=== PATIENT | female | born 1955 | race Hispanic/Latino ===

== ENCOUNTER 2018-07-06 20:35 | Emergency (ER) | payer BC, OTHER ==
[~2018-07-06] VITALS: Ht 154.9 cm; Wt 70.3 kg
[~2018-07-06 20:35] MED LIST: CLOBETASOL EMOL15 GM TOP; CYPROHEPTADINE H4 MG PO; DOCUSATE SODIU100 MG PO; KENALOG-4040 MG/1 ML TOP; LANSOPRAZOLE30 MG PO; PANTOPRAZOLE SO40 MG PO; VALTREX500 MG PO; ZOFRAN ODT4 MG PO
[2018-07-06] MEDS ORDERED: ONDANSETRON HCL INJ 2MG/ML 2ML 2 MG/ML VIAL IV STA (20:55)
[2018-07-06] MEDS ORDERED: MORPHINE SULFATE 5 MG/ML VIAL IV ONE (21:00)
[2018-07-06] MEDS ORDERED: SODIUM CHLORIDE 0.9% 1000ML 1,000 ML IV SCH (21:00)
--- NOTE | 2018-07-06 22:08 | Diagnostic Imaging Report ---
EXAM: CT Abdomen and Pelvis WITH contrast INDICATION: Left-sided discomfort. History of cholecystectomy, appendectomy, hysterectomy. History of diverticulitis. Left lower quadrant pain. Abdominal pain with vomiting. COMPARISON: None. TECHNIQUE: Abdomen and pelvis were scanned utilizing a multidetector helical scanner from the lung base to the pubic symphysis after administration of IV contrast. Coronal and sagittal reformations were obtained. Routine protocol was performed. Scan was performed when during portal venous phase. IV CONTRAST: 100 mL of Isovue 370 ORAL CONTRAST: Water COMPLICATIONS: None RADIATION DOSE: Total DLP: 632.2 mGy*cm Estimated effective dose: (DLP x 0.015 x size factor) mSv CTDIvol has been reviewed. It is below the limits set by the Radiation Protocol Committee (RPC). Dose modulation, iterative reconstruction, and/or weight based adjustment of the mA/kV was utilized to reduce the radiation dose to as low as reasonably achievable. FINDINGS: LINES and TUBES: None. LOWER THORAX: There is bibasilar atelectasis. HEPATOBILIARY: The liver is diffuse hypodense compared to the spleen, consistent with diffuse hepatic diffuse hepatic steatosis. No focal hepatic lesions. No biliary ductal dilation. GALLBLADDER: There are cholecystectomy clips. SPLEEN: No splenomegaly. PANCREAS: No focal masses or ductal dilatation. ADRENALS: No adrenal nodules KIDNEYS/URETERS: Kidneys enhance symmetrically. No hydronephrosis. Left extrarenal pelvis. 1.7 cm simple cyst in the interpolar region of the left kidney. No stones. GI TRACT: No abnormal distention, wall thickening, or evidence of bowel obstruction. There are diverticula within the colon without evidence of diverticulitis. There are post surgical changes of appendectomy. PELVIC ORGANS/BLADDER: The uterus is absent. Bilateral ovaries are nonvisualized. LYMPH NODES: No lymphadenopathy. VESSELS: Unremarkable. Right-sided pelvic phlebolith. PERITONEUM / RETROPERITONEUM: No free air or fluid. BONES: Focal moderate degenerative changes at L4-5. 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 (Series 2, image 60). SOFT TISSUES: Unremarkable. IMPRESSION: 1. No acute abnormalities identified abdomen or pelvis. 2. Diffuse hepatic steatosis. 3. Colonic diverticulosis without evidence of diverticulitis. Signed by: Dr. Teofilo Mtz M.D. on 07/06/2018 10:05 PM
[2018-07-06 22:37] VITALS: BP 134/76
== END 2018-07-06 22:38 | disposition home or self-care (01) ==
LOC: FSED 20:35
DX: R10.32 Left lower quadrant pain (principal); R11.0 Nausea
CPT/HCPCS: 74177; 80053; 81003; 85025; 99284; J2270; J2405

== ENCOUNTER 2019-07-07 10:25 | Inpatient (IN) | payer BC, OTHER ==
[~2019-07-07] VITALS: Ht 154.9 cm; Wt 63.6 kg
--- OUTSIDE RECORDS SUMMARY | 2019-07-07 10:29 | XMS REPORT ---
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 Allergies, Adverse Reactions, Alerts Allergy Name Allergy Type Status Severity Reaction(s) Onset Date Inactive Date Treating Clinician Comments No Known Contrast Allergies DA Active U 2006-08-23 00:00:00 No Known Food Allergies DA Active U 2006-08-23 00:00:00 No Known Other Allergies DA Active U 2006-08-23 00:00:00 PENICILLIN DA Active U 2006-08-23 00:00:00 Penicillins DA Active U 2001-02-17 00:00:00 Medications This patient has no known medications. Results Test Description Test Time Test Comments Text Results Atomic Results Result Comments CT ABD/PEL WITH CONTRAST-HOPD 2018-07-06 21:58:00 [place] [address] Patient Name: DANII STARR MR #: [id number] : 1955 Age/Sex: 62/F Req #: [id number] Adm Physician: Ordered by: JOLENE GARCIA MD Report #: [id number] Location: [facility] Room/Bed: Procedure: [id number] HOPD/CT ABD/PEL WITH CONTRAST-HOPD Exam Date: 07/06/18 Exam Time: 2119 REPORT STATUS: Signed EXAM: CT Abdomen and Pelvis WITH contrast INDICATION: Left-sided discomfort. History of cholecystectomy, appendectomy, hysterectomy. History of diverticulitis. Left lower quadrant pain. Abdominal pain with vomiting. COMPARISON: None. TECHNIQUE: Abdomen and pelvis were scanned utilizing a multidetector helical scanner from the lung base to the pubic symphysis after administration of IV contrast. Coronal and sagittal reformations were obtained. Routine protocol was performed. Scan was performed when during portal venous phase. IV CONTRAST: 100 mL of Isovue 370 ORAL CONTRAST: Water COMPLICATIONS: None RADIATION DOSE: Total DLP: 632.2 mGy*cm Estimated effective dose: (DLP x 0.015 x size factor) mSv CTDIvol has been reviewed. It is below the limits set by the Radiation Protocol Committee (RPC). Dose modulation, iterative reconstruction, and/or weight based adjustment of the mA/kV was utilized to reduce the radiation dose to as low as reasonably achievable. FINDINGS: LINES and TUBES: None. LOWER THORAX: There is bibasilar atelectasis. HEPATOBILIARY: The liver is diffuse hypodense compared to the spleen, consistent with diffuse hepatic diffuse hepatic steatosis. No focal hepatic lesions. No biliary ductal dilation. GALLBLADDER: There are cholecystectomy clips. SPLEEN: No splenomegaly. PANCREAS: No focal masses or ductal dilatation. ADRENALS: No adrenal nodules KIDNEYS/URETERS: Kidneys enhance symmetrically. No hydronephrosis. Left extrarenal pelvis. 1.7 cm simple cyst in the interpolar region of the left kidney. No stones. GI TRACT: No abnormal distention, wall thickening, or evidence of bowel obstruction. There are diverticula within the colon without evidence of diverticulitis. There are post surgical changes of appendectomy. PELVIC ORGANS/BLADDER: The uterus is absent. Bilateral ovaries are nonvisualized. LYMPH NODES: No lymphadenopathy. VESSELS: Unremarkable. Right-sided pelvic phlebolith. PERITONEUM / RETROPERITONEUM: No free air or fluid. BONES: Focal moderate degenerative changes at L4-5. 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 (Series 2, image 60). SOFT TISSUES: Unremarkable. IMPRESSION: 1. No acute abnormalities identified abdomen or pelvis. 2. Diffuse hepatic steatosis. 3. Colonic diverticulosis without evidence of diverticulitis. Signed by: Dr. Reza Mtz M.D. on 07/06/2018 10:05 PM Dictated By: REZA MTZ MD 04 Transcribed By: OLGA LIDIA on 07/06/182204 COPY TO: JOLENE GARCIA MD
[2019-07-07 10:56] LABS: BASOPHILS % 0.2 % (0.0-1.0); HEMATOCRIT 41.5 % (34.2-44.1); LYMPHOCYTES # (AUTO) 1.3 (1.0-3.2); LYMPHOCYTES % 32.9 % (18.0-39.1); MEAN CORPUSCULAR HEMOGLOBIN 30.1 pg (28-32); MEAN CORPUSCULAR HGB CONC 33.7 g/dL (31-35); MEAN CORPUSCULAR VOLUME 89.2 fL (81-99); MONOCYTES # (AUTO) 0.6 (0.2-0.8); MONOCYTES % 14.5 % (4.4-11.3); NEUTROPHILS # (AUTO) 2.1 (2.1-6.9); NEUTROPHILS % 51.9 % (38.7-80.0); PLATELET COUNT 214 x10e3/uL (140-360); RED BLOOD COUNT 4.65 x10e6/uL (3.6-5.1); RED CELL DISTRIBUTION WIDTH 13.2 % (11.7-14.4)
[2019-07-07 11:07] LABS: STREPTOCOCCUS GRP A ANTIGEN NEGATIVE (NEGATIVE)
[2019-07-07 11:11] LABS: ALANINE AMINOTRANSFERASE 58 IU/L (0-55); ALBUMIN 4.2 g/dL (3.5-5.0); ALBUMIN/GLOBULIN RATIO 1.4 (0.8-2.0); ALKALINE PHOSPHATASE 82 IU/L (40-150); ANION GAP 12.8 mmol/L (8-16); BLOOD UREA NITROGEN 6 mg/dL (7-26); BUN/CREATININE RATIO 9 (6-25); CALCIUM 8.9 mg/dL (8.4-10.2); CARBON DIOXIDE 28 mmol/L (22-29); CHLORIDE 97 mmol/L (98-107); CREATINE KINASE 245 IU/L (29-168); CREATININE, SERUM 0.68 mg/dL (0.57-1.11); EST GLOMERULAR FILTRATION RATE > 60 ML/MIN (60-); GLUCOSE 96 mg/dL (74-118); SODIUM 135 mmol/L (136-145)
[2019-07-07 11:12] LABS: POTASSIUM 2.8 mmol/L (3.5-5.1)
[2019-07-07] MEDS ORDERED: POTASSIUM CHLORIDE 20 MEQ TAB CR PO STA (11:13)
[2019-07-07 11:17] LABS: INFLUENZAE A&B ANTIGEN (RAPID) NEGATIVE (NEGATIVE)
[2019-07-07] MEDS ORDERED: SODIUM CHLORIDE 0.9% 1000ML 1,000 ML IV STA (11:18)
--- NOTE | 2019-07-07 11:33 | NUR ---
CANCEL UA PER MD
--- NOTE | 2019-07-07 12:55 | Diagnostic Imaging Report ---
EXAM: CHEST SINGLE (PORTABLE) DATE: 07/07/2019 10:48 AM INDICATION: Shortness of breath COMPARISON: None FINDINGS: The trachea is midline. There are increased patchy opacities present within the left lower lung zone. The right lung is clear. There is no evidence for pneumothorax or significant pleural effusion. The cardiomediastinal silhouette and pulmonary vasculature are within normal limits. No acute osseous abnormality is identified. IMPRESSION: Increased patchy opacities noted within the left lower lung zone which can be seen in the setting of a developing airspace process such as pneumonia. Signed by: Dr. Dakota Martinez MD on 07/07/2019 12:52 PM
[2019-07-07 13:05] LABS: CHOL/HDL RATIO 3.3 (3.0-3.6)
[2019-07-07] MEDS ORDERED: SODIUM CHLORIDE FLUSH 10 ML SYR INJ PRN (14:15)
--- NOTE | 2019-07-07 14:32 | NUR ---
Patient denies the use of any home medications
--- NOTE | 2019-07-07 14:32 | NUR ---
Patient's son- Drake [phone] Patient's mother- Mrs. Mitchell [phone]
[2019-07-07] MEDS: AZITHROMYCIN 500MG/NS 250 ML 250 ML IV SCH (14:33)
[2019-07-07] MEDS: LACTATED RINGER'S 1,000 ML IV SCH (15:29)
[2019-07-07] MEDS: ENOXAPARIN SOD INJ 40 MG/0.4 ML SYR SC SCH (17:41)
--- NOTE | 2019-07-07 18:02 | Consultation ---
DATE OF CONSULTATION: Pulmonary Critical Care Consultation CHIEF COMPLAINT: Cough and fevers with exposure to COVID-19. HISTORY OF PRESENT ILLNESS: The patient is a 63-year-old woman. She has no pre-existing cardiopulmonary history. Her contracted COVID-19, and was hospitalized 8 days ago. He is now in the ICU. Two to three days ago the patient developed a dry cough. This morning, she developed some fevers. She called her physician who recommended that she come to the emergency department. The patient also had some diarrhea that resolved with Imodium, which she attributes to prior diverticulitis. She also complains of a dry mouth and feeling dehydrated. She also reports some fatigue and weakness. PAST SURGICAL HISTORY: 1. Status post hysterectomy. 2. Status post appendectomy. PAST MEDICAL HISTORY: 1. No prior cardiac disease. 2. No history of diabetes. 3. No history of prior asthma or COPD. SOCIAL HISTORY: The patient has never smoked. She is not a drinker. Her had COVID-19 and required admission to the hospital 8 days ago. Her brother lives in the same house, but she has been maintaining a distance from him. ALLERGIES: THE PATIENT IS ALLERGIC TO PENICILLIN AND CIPROFLOXACIN. REVIEW OF SYSTEMS: The patient is afebrile now, but did have a fever earlier. She has no headache. She complains of a dry mouth. She does have some nonproductive cough. She has no chest pain. She is unsure of dyspnea. She has no abdominal pain. She did have some diarrhea. She has no leg swelling. There are no skin rashes. PHYSICAL EXAMINATION: VITAL SIGNS: The patient is afebrile. The blood pressure is 117/61, saturation is 97%, and the pulse is 89. HEENT: No facial swelling or erythema. CARDIAC: Regular rate and rhythm with normal S1, S2. LUNGS: Auscultation of lungs reveals rhonchorous breath sounds bilaterally. There is no wheezing. ABDOMEN: Soft, nontender. There is no rebound or guarding. EXTREMITIES: No leg edema or calf tenderness. There is no cyanosis or clubbing. SKIN: No rashes. NEUROLOGICAL: No focal abnormalities. LABORATORY DATA: White blood cell count is 4 and hemoglobin is 14. The platelet count is 214. The potassium is 2.8 and BUN to creatinine ratio is 6-0.68. RADIOGRAPHIC DATA: Chest x-ray shows patchy opacities in the left lower lung. IMPRESSION: 1. Atypical pneumonia. 2. Probable COVID-19 infection. 3. Hypokalemia. 4. Diverticulosis. 5. Dehydration. PLAN: 1. The patient will receive IV fluids along with intravenous Zithromax. 2. Await serology testing. 3. Replace potassium. 4. Continue to monitor oxygen saturation and respiratory symptoms. 5. The patient remains off oxygen and does not have worsening symptoms, she could be treated as an outpatient. Donald Cleveland MD [facility]/MODL /[id number]
[2019-07-07 18:20] VITALS: BP 135/59
[2019-07-07 18:20] LABS: CREATINE KINASE 161 IU/L (29-168)
--- NOTE | 2019-07-07 18:23 | NUR ---
patient arrived to room 177, on room air with mask in place. oriented to room and policies. call light within reach & all belongings near. patient aware to call for assistance if needed.
--- NOTE | 2019-07-07 18:57 | History and Physical ---
PRIMARY CARE DOCTOR: Moe Oakley CHIEF COMPLAINT: Shortness of breath. HISTORY OF PRESENT ILLNESS: This is a 63-year-old woman, whose is currently hospitalized in the ICU with COVID-19. The patient presented with cough for about 5 days now. However, initially, the cough is dry, now it is turning into productive including green sputum. The patient denies fever per se, but this morning, she woke up completely soak. The patient had diarrhea one time a few days ago, but denies any nausea, vomiting. No myalgia. The patient does complain of severe dry mouth. Yesterday, the patient started to feel short of breath and today, it got more, especially with exertion. That is why, the patient presented to our emergency room. The patient denies chest pain. PAST MEDICAL AND SURGICAL HISTORY: 1. GERD. 2. Cholecystectomy. 3. Appendectomy. 4. Hysterectomy. 5. Hernia repair. MEDICATIONS: Please see medication reconciliation form. ALLERGIES: TO PENICILLIN AND CIPROFLOXACIN. SOCIAL HISTORY: Does not smoke. FAMILY HISTORY: Cancer. REVIEW OF SYSTEMS: A 10-point review of system obtained and nothing else is significant other than what is stated in HPI. PHYSICAL EXAMINATION: VITAL SIGNS: Temperature 99.1, pulse 89, respiratory rate 18, blood pressure 117/61, saturating 97% on room air. GENERAL: No acute distress. SKIN: No rash. HEENT: Anicteric. Oropharynx is clear. LUNGS: Coarse crackles. HEART: Regular rate and rhythm. Normal S1, S2. ABDOMEN: Soft, nondistended. MUSCULOSKELETAL: Painless range of motion. NEUROLOGIC: Alert and oriented x3. Cranial nerves 2 through 12 intact. PSYCHIATRIC: No hallucination. LABORATORY DATA: Laboratory tom, white count 4, hemoglobin 14, platelet count 214. Potassium 2.8, creatinine 0.68. Ferritin is elevated at 260. Lactic acid is negative. Creatinine 0.68. AST 43, ALT 58, CPK is 245. Beta natriuretic peptide is negative. Chest x-ray shows left lower increased patchy opacities. ASSESSMENT AND PLAN: 1. Presumed COVID-19 with pneumonia. The patient was started on azithromycin. Pulmonary and Infectious Disease have been consulted. 2. Hypokalemia. The patient received a dose in the emergency room for replacement. We will repeat in the morning to assess response. 3. Slightly elevated CPK. We will continue to hydrate her. 4. Mild elevation of AST and ALT. We will monitor. 5. Gastrointestinal/deep venous thrombosis prophylaxis, on Lovenox. MD STEFANO Crisostomo/SERINA /[id number] cc: Moe Oakley
--- NOTE | 2019-07-07 19:29 | NUR ---
patient's son, edgar, updated per patient request. he can be reached at [phone].
[2019-07-07 20:15] VITALS: BP 124/58
[2019-07-07 21:12] VITALS: BP 124/58
[2019-07-08] VITALS (8 sets, daily range): BP systolic 121–142; BP diastolic 56–72
--- NOTE | 2019-07-08 00:13 | NUR ---
Patients vitals taken and patients temp 102.6. Called Dr. Grimaldo waiting for a call back.
[2019-07-08 00:28] LABS: CREATINE KINASE 140 IU/L (29-168)
--- NOTE | 2019-07-08 00:37 | NUR ---
Called Dr. Grimaldo again second time.
[2019-07-08] MEDS: LACTATED RINGER'S 1,000 ML IV SCH ×2 (01:19→11:00)
--- NOTE | 2019-07-08 01:32 | NUR ---
Called Dr. Stark awaiting for his call back.
[2019-07-08 05:06] LABS: BASOPHILS % 0.3 % (0.0-1.0); HEMATOCRIT 37.1 % (34.2-44.1); HEMOGLOBIN 12.4 g/dL (12.0-16.0); LYMPHOCYTES # (AUTO) 1.1 (1.0-3.2); LYMPHOCYTES % 28.9 % (18.0-39.1); MEAN CORPUSCULAR HGB CONC 33.4 g/dL (31-35); MEAN CORPUSCULAR VOLUME 89.6 fL (81-99); MONOCYTES # (AUTO) 0.5 (0.2-0.8); MONOCYTES % 12.2 % (4.4-11.3); NEUTROPHILS # (AUTO) 2.3 (2.1-6.9); NEUTROPHILS % 58.3 % (38.7-80.0); PLATELET COUNT 194 x10e3/uL (140-360); RED BLOOD COUNT 4.14 x10e6/uL (3.6-5.1); RED CELL DISTRIBUTION WIDTH 13.2 % (11.7-14.4)
[2019-07-08 05:23] LABS: ALANINE AMINOTRANSFERASE 38 IU/L (0-55); ALBUMIN 3.4 g/dL (3.5-5.0); ALBUMIN/GLOBULIN RATIO 1.3 (0.8-2.0); ALKALINE PHOSPHATASE 66 IU/L (40-150); ANION GAP 12.9 mmol/L (8-16); BLOOD UREA NITROGEN < 5 mg/dL (7-26); CALCIUM 7.8 mg/dL (8.4-10.2); CARBON DIOXIDE 23 mmol/L (22-29); CHLORIDE 99 mmol/L (98-107); CREATININE, SERUM 0.57 mg/dL (0.57-1.11); EST GLOMERULAR FILTRATION RATE > 60 ML/MIN (60-); GLUCOSE 83 mg/dL (74-118); SODIUM 132 mmol/L (136-145)
[2019-07-08 05:31] LABS: ALBUMIN 3.5 g/dL (3.5-5.0); BILIRUBIN,DIRECT 0.3 mg/dL (0.0-0.5); CREATINE KINASE 116 IU/L (29-168)
[2019-07-08 05:37] LABS: BUN/CREATININE RATIO 9 (6-25)
[2019-07-08 05:41] LABS: POTASSIUM 2.9 mmol/L (3.5-5.1)
--- NOTE | 2019-07-08 05:44 | NUR ---
Critical K, called Dr. Grimaldo for orders, awaiting a return call.
--- NOTE | 2019-07-08 06:22 | NUR ---
Received potassium order for critical lab and tylenol order for temperature per Dr. Grimaldo.
[2019-07-08] MEDS ORDERED: POTASSIUM CHLORIDE 20 MEQ TAB CR PO ONE ×2 (06:30→08:15)
[2019-07-08] MEDS: PANTOPRAZOLE SOD 40 MG TABEC PO SCH (08:28)
--- NOTE | 2019-07-08 08:46 | NUR ---
ASSESSMENT: Spiritual Distress Blueprint Duplicator referred by RN. Telephonic visit. Pt worried about her illness and her 's health. Pt states her is in ICU (Dank Haines, Rm 196). Pt requested prayer. Pt identifies as "Confucianist and non-congregational." Intervention: Provided calming pastoral support and prayer. Provided information on how to reach historiography teacher, if needed. Outcome: Pt stated, "God bless you, historiography teacher." Will follow as able. TAMIA REDMOND Blueprint Duplicator Spiritual Care Department O: [phone]
--- NOTE | 2019-07-08 10:55 | Diagnostic Imaging Report ---
EXAM: CHEST SINGLE (PORTABLE) DATE: 07/08/2019 7:00 AM INDICATION: Shortness of breath COMPARISON: 07/07/2019 FINDINGS: Again identified are patchy airspace opacities the guiding over the left lower lung zone. There is no evidence for lobar consolidation, pneumothorax, or significant pleural effusion. The cardiomediastinal silhouette is stable in appearance. No acute osseous abnormality is identified. IMPRESSION: Grossly stable appearing patchy airspace opacities identified within the left lower lung zone which can be seen in the setting of an infectious/inflammatory process. Signed by: Dr. Dakota Martinez MD on 07/08/2019 10:52 AM
--- NOTE | 2019-07-08 13:01 | NUR ---
[id number] late entery for 07/07/2019
--- NOTE | 2019-07-08 13:44 | Consultation ---
DATE OF CONSULTATION: 07/07/2019 HISTORY OF PRESENT ILLNESS: The patient is a very pleasant 63-year-old Bulgarian female, who comes in the emergency room complaining of shortness of breath and cough. Her was diagnosed recently with COVID-19. He is currently in our hospital in ICU. The patient was in our hospital. He has been sick for more than 2 weeks. She said she has been sick for a few days with cough and fever. The patient's, however, evaluation in the emergency room showed she has no fever. Also, the patient did not seem to be hypoxemic, but the patient is going to be admitted for observation and evaluation. The patient does have history of hysterectomy and appendectomy. PAST MEDICAL HISTORY: She denies drug abuse. She denies any medical history. SOCIAL HISTORY: Negative. No smoking, drug abuse, or alcohol abuse. FAMILY HISTORY: Otherwise noncontributory. REVIEW OF SYSTEMS: She claims that she is short of breath and having cough and fever as mentioned above, otherwise all negative. LABORATORY DATA: On admission, white count 3.94, hemoglobin 12, and platelets 194. She has elevated monocyte. Her influenza A and B were negative. Sodium 132, potassium 3.9. PHYSICAL EXAMINATION: GENERAL: She is currently alert and oriented, does not seem to be in acute distress. VITAL SIGNS: Stable. She does have fever of 103. HEENT: She is not icteric. NECK: Supple. CHEST: Few crackles. COR: S1 and S2. No S3, S4, or murmur. ABDOMEN: Soft. IMAGING STUDIES: She had a chest x-ray, which showed stable patchy airspace opacities. IMPRESSION: Pneumonia, present on admission versus suspicious for COVID-19, put on droplet isolation. We will put her on Rocephin and azithromycin. Obtain blood cultures. Recheck CBC. Recheck Chem panel. We will follow. MD NICOLE Hernandez/SERINA /[id number]
[2019-07-08] MEDS ORDERED: MAGNESIUM SULFATE 2GM/50ML 50 ML IV ONE (14:30)
--- NOTE | 2019-07-08 14:35 | Progress Note ---
DATE: SUBJECTIVE: Ms. Haines is lying in bed comfortably. She is complaining of fever and some cough and shortness of breath. The patient is currently on azithromycin. REVIEW OF SYSTEMS: Positive for fever and shortness of breath. PHYSICAL EXAMINATION: GENERAL: Currently alert and oriented, does not seem to be in acute distress. VITAL SIGNS: Stable, currently febrile. HEENT: She is not icteric. NECK: Supple. CHEST: Few crackles. COR: S1 and S2. No S3, S4, or murmur. ABDOMEN: Soft. Bowel sounds present. EXTREMITIES: No edema. IMPRESSION: Fever and pneumonia. Continue Rocephin. Continue azithromycin. Obtain blood cultures. Recheck CBC. Recheck Chem panel. We will maintain droplet isolation. We will follow. MD NICOLE Hernandez/SERINA /[id number]
--- NOTE | 2019-07-08 14:35 | Progress Note ---
DATE: SUBJECTIVE: The patient still has some fever, but her saturations are normal on room air. She has minimal dyspnea. PHYSICAL EXAMINATION: VITAL SIGNS: The patient is febrile at 100.8. The blood pressure is 121/56. Saturation 95% on room air. Pulse is 95. HEENT: Shows no facial swelling or erythema. CARDIAC: Reveals regular rate and rhythm with normal S1 and S2. LUNGS: Auscultation of lungs reveals clear breath sounds bilaterally. There is no wheezing. ABDOMEN: Soft, nontender. There is no rebound or guarding. EXTREMITIES: Show no leg edema or calf tenderness. There is no cyanosis or clubbing. SKIN: Shows no rashes. PSYCHIATRIC: Shows no focal abnormalities. IMPRESSION: 1. Viral pneumonia, possibly secondary to COVID-19. 2. Hypokalemia. 3. Diverticulosis. PLAN: 1. Continue Zithromax. 2. Await results of antigen testing for COVID-19. 3. Continue to monitor oxygen saturation and temperature. Donald Cleveland MD [facility]/MODL /[id number]
[2019-07-08] MEDS: CEFTRIAXONE SOD 2 GM/NS 100 ML 100 ML IV SCH (15:20)
[2019-07-08] MEDS: AZITHROMYCIN 500MG/NS 250 ML 250 ML IV SCH (16:22)
[2019-07-08] MEDS: ENOXAPARIN SOD INJ 40 MG/0.4 ML SYR SC SCH (17:23)
--- NOTE | 2019-07-08 17:34 | NUR ---
patient requested to be placed on nasal cannula due to left sided pain- 2L. dr. su aware.
[2019-07-08] MEDS: ACETAMINOPHEN 325 MG TAB PO PRN (21:00)
--- NOTE | 2019-07-08 21:00 | NUR ---
Pt received lying in bed, HOB 60 degrees. Pt denies pain at this time. c/o mild SOB upon exertion. Bed low and locked. Informed to call on bedside phone for assistance.
--- NOTE | 2019-07-08 21:05 | NUR ---
Temp 100.5, admin prn Tylenol. Pt mild chills, no diaphoresis noted, denies pain at this time.
[2019-07-09] VITALS (7 sets, daily range): BP systolic 102–142; BP diastolic 59–80
[2019-07-09] MEDS: LACTATED RINGER'S 1,000 ML IV SCH ×2 (01:00→12:27)
[2019-07-09 06:02] LABS: ANION GAP 10.9 mmol/L (8-16); BLOOD UREA NITROGEN < 5 mg/dL (7-26); CALCIUM 8.3 mg/dL (8.4-10.2); CARBON DIOXIDE 27 mmol/L (22-29); CHLORIDE 102 mmol/L (98-107); CREATININE, SERUM 0.54 mg/dL (0.57-1.11); EST GLOMERULAR FILTRATION RATE > 60 ML/MIN (60-); GLUCOSE 97 mg/dL (74-118); MAGNESIUM 2.2 MG/DL (1.3-2.1); POTASSIUM 3.9 mmol/L (3.5-5.1); SODIUM 136 mmol/L (136-145)
[2019-07-09 06:22] LABS: BUN/CREATININE RATIO 9 (6-25)
--- NOTE | 2019-07-09 06:43 | NUR ---
Spoke with Dr. Grimaldo, Pt c/o abdomen pain, no BM x5 days, ordered Lactulose 45ml x1 dose now.
[2019-07-09] MEDS ORDERED: LACTULOSE SYRUP 20 GM/30 ML UDC PO ONE ×2 (06:45→09:00)
[2019-07-09] MEDS: ACETAMINOPHEN 325 MG TAB PO PRN ×2 (08:22→21:00)
[2019-07-09] MEDS ORDERED: HYDROMORPHONE 1MG/1ML INJ IV ONE (09:00)
--- NOTE | 2019-07-09 09:28 | Progress Note ---
DATE: SUBJECTIVE: The patient reports severe abdominal pain. She had no bowel movement for 5 days. She reports a history of diverticulitis. She had some diarrhea prior to coming to the hospital that resolved with Imodium. PHYSICAL EXAMINATION: VITAL SIGNS: Blood pressure is 140/71, temperature is 100.1, pulse is 103. Saturation is 100% on 2 L. HEENT: No facial swelling or erythema. CARDIAC: Regular rate and rhythm with normal S1, S2. LUNGS: Auscultation of lungs reveals rhonchorous breath sounds bilaterally. There is no wheezing. ABDOMEN: Tender in the left lower quadrant. There is no rebound. EXTREMITIES: She has no leg edema. LABORATORY DATA: White blood cell count is pending. The BUN to creatinine ratio is 5 to 0.54. The potassium is 3.9. IMPRESSION: 1. Diverticulitis with abdominal pain and tenderness. 2. Viral pneumonia, possibly secondary to COVID-19. 3. Hypokalemia. PLAN: 1. Dilaudid 0.25 mg IV x1 and pain control as needed. 2. Continue IV fluids. 3. Add Flagyl to current antibiotics. 4. Discuss potential need for CT scan of the abdomen and pelvis with Dr. Grimaldo and Dr. Stark. MD BOB Samson/SERINA /[id number]
[2019-07-09] MEDS: PANTOPRAZOLE SOD 40 MG TABEC PO SCH (09:38)
--- NOTE | 2019-07-09 11:56 | NUR ---
PROGRESS [id number]
[2019-07-09] MEDS: CEFTRIAXONE SOD 2 GM/NS 100 ML 100 ML IV SCH (14:19)
[2019-07-09] MEDS ORDERED: MAGNESIUM HYDROXIDE 30 ML UDC PO PRN (14:30)
[2019-07-09 14:33] LABS: AMYLASE 69 U/L (25-125); LIPASE 50 U/L (8-78)
[2019-07-09 14:45] LABS: BASOPHILS % 0.2 % (0.0-1.0); HEMATOCRIT 37.5 % (34.2-44.1); HEMOGLOBIN 12.5 g/dL (12.0-16.0); LYMPHOCYTES # (AUTO) 0.8 (1.0-3.2); LYMPHOCYTES % 14.5 % (18.0-39.1); MEAN CORPUSCULAR HEMOGLOBIN 29.7 pg (28-32); MEAN CORPUSCULAR HGB CONC 33.3 g/dL (31-35); MEAN CORPUSCULAR VOLUME 89.1 fL (81-99); MONOCYTES # (AUTO) 0.5 (0.2-0.8); MONOCYTES % 8.7 % (4.4-11.3); NEUTROPHILS # (AUTO) 4.1 (2.1-6.9); NEUTROPHILS % 76.2 % (38.7-80.0); PLATELET COUNT 219 x10e3/uL (140-360); RED BLOOD COUNT 4.21 x10e6/uL (3.6-5.1); RED CELL DISTRIBUTION WIDTH 13.4 % (11.7-14.4)
--- NOTE | 2019-07-09 14:55 | Progress Note ---
DATE: SUBJECTIVE: Ms. Haines's COVID-19 status came back positive, her was positive. She says she is feeling about the same. She have some shortness of breath. Her temperatures seem to be trending down. She also have some diffuse abdominal discomfort, but she is telling me she did not have a bowel movement. LABORATORY DATA: Still pending from today. Her sodium was 136, potassium 3.9. PHYSICAL EXAMINATION: GENERAL: She is currently alert, oriented. She is lying fever. HEENT: She is not icteric. NECK: Supple. CHEST: Clear. A few crackles bilateral. HEART: S1, S2. No S3, S4 or murmur. ABDOMEN: Soft. IMPRESSION: 1. COVID-19 pneumonia. 2. Concern about superimposed bacterial pneumonitis. She continues . 3. Abdominal pain. She is telling me that she has constipation. We will give her laxative of choice. She said she had no bowel movement the last five days. Her abdomen was soft upon examination. I am going to reassess her tomorrow morning. If she still having issue, we may have to proceed with a CAT scan. In the meantime, continue with droplet isolation. MD NICOLE Hernandez/SERINA /[id number]
[2019-07-09] MEDS: AZITHROMYCIN 500MG/NS 250 ML 250 ML IV SCH (15:00)
[2019-07-09] MEDS: METRONIDAZOLE 500MG/NS 100ML 100 ML IV SCH ×2 (15:02→22:00)
[2019-07-09] MEDS: ENOXAPARIN SOD INJ 40 MG/0.4 ML SYR SC SCH (17:22)
--- NOTE | 2019-07-09 18:35 | NUR ---
Patient up in bed, denies any pain, no distress noted, patient had 3 BMs, abd pain is coming down as per patient, keep monitoring
--- NOTE | 2019-07-09 19:30 | NUR ---
Received report from morning nurse. Pt COVID19 positive interpretation. Pt lying in bed, HOB 45 degrees. Pt asked for water pitcher. denies pain at this time. Informed to use phone to call if anything needed. Bed low and locked. Will continue to monitor.
[2019-07-10] VITALS (7 sets, daily range): BP systolic 109–140; BP diastolic 53–65
[2019-07-10] MEDS: LACTATED RINGER'S 1,000 ML IV SCH (05:00)
[2019-07-10] MEDS: METRONIDAZOLE 500MG/NS 100ML 100 ML IV SCH ×3 (05:28→21:01)
[2019-07-10 05:55] LABS: HEMATOCRIT 38.1 % (34.2-44.1); HEMOGLOBIN 12.7 g/dL (12.0-16.0); LYMPHOCYTES # (AUTO) 0.9 (1.0-3.2); LYMPHOCYTES % 15.3 % (18.0-39.1); MEAN CORPUSCULAR HEMOGLOBIN 29.7 pg (28-32); MEAN CORPUSCULAR HGB CONC 33.3 g/dL (31-35); MONOCYTES # (AUTO) 0.5 (0.2-0.8); MONOCYTES % 8.8 % (4.4-11.3); NEUTROPHILS # (AUTO) 4.3 (2.1-6.9); NEUTROPHILS % 75.4 % (38.7-80.0); PLATELET COUNT 215 x10e3/uL (140-360); RED BLOOD COUNT 4.28 x10e6/uL (3.6-5.1); RED CELL DISTRIBUTION WIDTH 13.2 % (11.7-14.4)
[2019-07-10] MEDS: ACETAMINOPHEN 325 MG TAB PO PRN ×2 (06:00→21:02)
[2019-07-10 06:18] LABS: ALANINE AMINOTRANSFERASE 25 IU/L (0-55); ALBUMIN 3.3 g/dL (3.5-5.0); ALBUMIN/GLOBULIN RATIO 1.2 (0.8-2.0); ALKALINE PHOSPHATASE 60 IU/L (40-150); ANION GAP 12.4 mmol/L (8-16); BLOOD UREA NITROGEN < 5 mg/dL (7-26); CARBON DIOXIDE 25 mmol/L (22-29); CHLORIDE 99 mmol/L (98-107); CREATININE, SERUM 0.53 mg/dL (0.57-1.11); EST GLOMERULAR FILTRATION RATE > 60 ML/MIN (60-); GLUCOSE 94 mg/dL (74-118); POTASSIUM 3.4 mmol/L (3.5-5.1); SODIUM 133 mmol/L (136-145)
[2019-07-10 06:37] LABS: BUN/CREATININE RATIO 9 (6-25)
[2019-07-10] MEDS: PANTOPRAZOLE SOD 40 MG TABEC PO SCH (07:59)
[2019-07-10] MEDS ORDERED: ACETAMINOPHEN/CODEINE 300MG - 30MG TAB PO PRN (09:00)
[2019-07-10] MEDS ORDERED: POTASSIUM CHLORIDE 20 MEQ TAB CR PO ONE (10:30)
--- NOTE | 2019-07-10 11:30 | NUR ---
Dr. Stark aware of T101.1 on 07/10/19 at 0402
--- NOTE | 2019-07-10 11:46 | Progress Note ---
DATE: SUBJECTIVE: The patient had a bowel movement yesterday and has less abdominal pain. She still has some mild dyspnea. She is afebrile. PHYSICAL EXAMINATION: VITAL SIGNS: Blood pressure is 125/68, saturation is 96% on 2 L. HEENT: No facial swelling or erythema. CARDIAC: Regular rate and rhythm with normal S1, S2. LUNGS: Auscultation of the lungs shows clear breath sounds bilaterally. ABDOMEN: Soft. There is less left lower quadrant tenderness. LABORATORY DATA: CBC is within normal limits. Electrolytes; BUN and creatinine were normal. IMPRESSION: 1. Bilateral pneumonia secondary to COVID-19. 2. Possible diverticulitis. PLAN: 1. Continue antibiotics. 2. Wean oxygen. 3. Out of bed as tolerated. 4. Discussed disposition with Dr. Grimaldo and Dr. Stark. Donald Cleveland MD [facility]/SERINA /[id number]
[2019-07-10] MEDS: CEFTRIAXONE SOD 2 GM/NS 100 ML 100 ML IV SCH (14:19)
--- NOTE | 2019-07-10 15:02 | Progress Note ---
DATE: SUBJECTIVE: Ms. Haines is feeling better. We gave her laxative yesterday. Her abdominal pain is better. She had a bowel movement, but however she continued to feel weak. Her potassium was low today. She claims she is short of breath even though her O2 saturation is very good at 94%. The patient, however, is very anxious and concerned that she is not feeling well. Her remains in intensive care unit, intubated. REVIEW OF SYSTEMS: Otherwise negative. PHYSICAL EXAMINATION: GENERAL: She is currently alert, oriented, does not seem to be in acute distress. VITAL SIGNS: Stable, currently afebrile. HEENT: She is not icteric. NECK: Supple. CHEST: Clear. HEART: S1-S2. No murmurs. ABDOMEN: Soft. Positive bowel sounds. No tenderness. EXTREMITIES: No edema. IMPRESSION: COVID-19, present on admission. Clinically, I think she is doing better today with hypokalemia. We will give her potassium supplement. We will again recheck her tomorrow, probably can go home soon. Discussed with the patient. Discussed with medical team. MD NICOLE Hernandez/SERINA /[id number]
[2019-07-10] MEDS ORDERED: LACTULOSE SYRUP 20 GM/30 ML UDC PO ONE (15:30)
[2019-07-10] MEDS ORDERED: IBUPROFEN 600 MG TAB PO PRN (15:30)
[2019-07-10] MEDS: AZITHROMYCIN 500MG/NS 250 ML 250 ML IV SCH (16:14)
[2019-07-10] MEDS: ENOXAPARIN SOD INJ 40 MG/0.4 ML SYR SC SCH (16:15)
--- NOTE | 2019-07-10 18:58 | NUR ---
Report given to oncoming nurse of patient's status. No s/s of acute distress noted.
--- NOTE | 2019-07-10 22:55 | NUR ---
Patient c/o frequent diarrhea, reports 3 loose bowel movements in the last hour. Informed patient that she received lactulose earlier today to address constipation. Patient requesting Imodium. Spoke to Dr. Grimaldo. Per Dr. Grimaldo, patient was given lactulose because she had not had a bowel movement in 2 days, and 6 days before that. No new orders received at this time. Provided patient education. Will continue to monitor.
[2019-07-11] VITALS (9 sets, daily range): BP systolic 123–141; BP diastolic 58–67
[2019-07-11] MEDS: METRONIDAZOLE 500MG/NS 100ML 100 ML IV SCH ×2 (05:41→16:00)
[2019-07-11] MEDS: PANTOPRAZOLE SOD 40 MG TABEC PO SCH (08:10)
[2019-07-11] MEDS ORDERED: SODIUM CHLORIDE 0.45% 1,000 ML IV ONE (08:15)
[2019-07-11] MEDS ORDERED: ONDANSETRON HCL INJ 2MG/ML 2ML 2 MG/ML VIAL IV PRN (08:15)
[2019-07-11] MEDS ORDERED: SODIUM CHLORIDE 0.9% 1000ML 1,000 ML IV ONE (08:30)
--- NOTE | 2019-07-11 10:05 | NUR ---
ASSESSMENT: Spiritual concern Telephonic visit. Pt worried about . Pt states she is "weak." Intervention: Provided empathic pastoral listening. Provided prayer. Outcome: Pt expressed appreciation for call. Will continue to follow up as able. TAMIA REDMOND Reliability Technologist Spiritual Care Department O: [phone]
--- NOTE | 2019-07-11 10:44 | Progress Note ---
DATE: SUBJECTIVE: The patient is afebrile. She reports some nausea. She also has some vomiting. She feels weak. PHYSICAL EXAMINATION: VITAL SIGNS: The patient is afebrile. The blood pressure is 134/64 and the saturation is 95% on room air. HEENT: Shows no facial swelling or erythema. CARDIAC: Reveals regular rate and rhythm with a normal S1, S2. LUNGS: Auscultation of lungs reveals clear breath sounds bilaterally. There is no wheezing. ABDOMEN: Soft, nontender. There is no rebound or guarding. EXTREMITIES: Show no leg edema or calf tenderness. LABORATORY DATA: White blood cell count is 5.6, hemoglobin 12.7, and the platelet count is 215. The BUN to creatinine ratio is 5 to 0.53. The sodium is 133 and the potassium is 3.4. IMPRESSION: 1. Nausea and vomiting with associated dehydration. 2. Bilateral viral pneumonia, secondary to COVID-19. 3. Diverticulitis. 4. Hypokalemia. PLAN: 1. IV fluids x1 L. 2. Antiemetics. 3. Replace potassium. 4. Complete antibiotics. 5. Recommend hospital observation for at least another day. Donald Cleveland MD [facility]/SERINA /[id number]
[2019-07-11] MEDS: AZITHROMYCIN 500MG/NS 250 ML 250 ML IV SCH (15:00)
[2019-07-11] MEDS: CEFTRIAXONE SOD 2 GM/NS 100 ML 100 ML IV SCH (15:22)
[2019-07-11] MEDS: ENOXAPARIN SOD INJ 40 MG/0.4 ML SYR SC SCH (17:00)
--- NOTE | 2019-07-11 18:42 | Progress Note ---
DATE: SUBJECTIVE: Ms. Haines remains feeling weak, but I think she is really anxious. Discussed with her at length, reassured her that the patient had some nausea, but she is doing good. REVIEW OF SYSTEMS: Otherwise, there is nothing new. PHYSICAL EXAMINATION: GENERAL: Currently, alert and oriented. VITAL SIGNS: Stable, afebrile. HEENT: Normocephalic. NECK: Supple. No JVD. No lymphadenopathy. No thyromegaly. CHEST: Clear bilaterally. HEART: S1, S2. No S3, S4, or murmur. ABDOMEN: Soft. Bowel sounds present. EXTREMITIES: No edema. SKIN: No rash. IMPRESSION: COVID-19 and pneumonia present on admission, clinically seems to be improving. Discharge home tomorrow with supportive care. Push p.o. fluid, antiemetic Zofran as needed. Follow up with me in 2 weeks. Discussed with the patient at length. MD NICOLE Hernandez/SERINA /[id number]
--- NOTE | 2019-07-11 19:00 | NUR ---
Patient visited in room during nursing rounds. Patient alert and oriented x3. No distress or discomfort noted. Pt on droplet isolation for positive COVID diagnosis. Pt ambulatory with standby assist prn. On IVF (NS at 100ml/hr). On cardiac monitor technician. Call gooden within reach. Will monitor pt closely.
--- NOTE | 2019-07-11 21:30 | NUR ---
Patient taking a shower bath at this time. No distress or discomfort observed. Linens were changed and pt was provided with new mask.
[2019-07-12] VITALS (8 sets, daily range): BP systolic 130–144; BP diastolic 60–71
[2019-07-12] MEDS: METRONIDAZOLE 500MG/NS 100ML 100 ML IV SCH ×2 (07:59)
[2019-07-12] MEDS: PANTOPRAZOLE SOD 40 MG TABEC PO SCH (07:59)
--- NOTE | 2019-07-12 10:55 | Progress Note ---
DATE: SUBJECTIVE: The patient still complains of some diarrhea. She feels fatigued. She is not having fevers. She is off oxygen. OBJECTIVE: VITAL SIGNS: The blood pressure is 133/60, saturation is 94% on room air. HEENT: Shows no facial swelling or erythema. CARDIAC: Reveals a regular rate and rhythm with normal S1 and S2. LUNGS: Auscultation of lungs shows clear breath sounds bilaterally. There is no wheezing. ABDOMEN: Soft, nontender. There is no rebound or guarding. EXTREMITIES: Show no leg edema or calf tenderness. There is no cyanosis or clubbing. SKIN: Shows no rashes. NEUROLOGICAL: Shows no focal abnormalities. ASSESSMENT: 1. COVID-19 infection. 2. Diarrhea. 3. Diverticulitis. 4. Hypokalemia. PLAN: 1. Repeat CBC and CMP. 2. Antiemetics. 3. Replace potassium. 4. Complete antibiotics. 5. Judicious use of IV fluids. Donald Cleveland MD [facility]/SERINA /[id number]
[2019-07-12 11:24] LABS: BASOPHILS % 0.4 % (0.0-1.0); EOSINOPHILS % 0.4 % (0.0-6.0); HEMOGLOBIN 13.5 g/dL (12.0-16.0); LYMPHOCYTES # (AUTO) 1.1 (1.0-3.2); LYMPHOCYTES % 19.6 % (18.0-39.1); MEAN CORPUSCULAR HEMOGLOBIN 29.9 pg (28-32); MEAN CORPUSCULAR HGB CONC 33.8 g/dL (31-35); MEAN CORPUSCULAR VOLUME 88.7 fL (81-99); MONOCYTES # (AUTO) 0.6 (0.2-0.8); NEUTROPHILS # (AUTO) 3.7 (2.1-6.9); NEUTROPHILS % 67.5 % (38.7-80.0); PLATELET COUNT 300 x10e3/uL (140-360); RED BLOOD COUNT 4.51 x10e6/uL (3.6-5.1); RED CELL DISTRIBUTION WIDTH 13.2 % (11.7-14.4)
[2019-07-12] MEDS ORDERED: LACTATED RINGER'S 1,000 ML IV ONE (15:00)
[2019-07-12] MEDS ORDERED: CHOLESTYRAMINE 4 GM PACKET PO ONE (15:15)
[2019-07-12 16:41] LABS: ALANINE AMINOTRANSFERASE 29 IU/L (0-55); ALBUMIN 3.5 g/dL (3.5-5.0); ANION GAP 12.1 mmol/L (8-16); BLOOD UREA NITROGEN 6 mg/dL (7-26); BUN/CREATININE RATIO 11 (6-25); CALCIUM 8.5 mg/dL (8.4-10.2); CARBON DIOXIDE 24 mmol/L (22-29); CHLORIDE 100 mmol/L (98-107); CREATININE, SERUM 0.57 mg/dL (0.57-1.11); EST GLOMERULAR FILTRATION RATE > 60 ML/MIN (60-); GLUCOSE 104 mg/dL (74-118); POTASSIUM 3.1 mmol/L (3.5-5.1); SODIUM 133 mmol/L (136-145)
[2019-07-12 16:42] LABS: ALBUMIN/GLOBULIN RATIO 1.1 (0.8-2.0); ALKALINE PHOSPHATASE 73 IU/L (40-150)
--- NOTE | 2019-07-12 16:56 | Progress Note ---
DATE: SUBJECTIVE: Mrs. Haines is lying in bed, comfortable. She is feeling really weak. She is having bad diarrhea today. REVIEW OF SYSTEMS: Otherwise there is no shortness of breath or cough. PHYSICAL EXAMINATION: VITAL SIGNS: Stable, afebrile. HEENT: Normocephalic. NECK: Supple. CHEST: Clear bilaterally. HEART: S1, S2. No S3, S4, or murmur. ABDOMEN: Soft. Bowel sounds present. EXTREMITIES: No edema. SKIN: No rash. IMPRESSION: Diarrhea. I think it is due to her antibiotic. We will discontinue. We will give Questran. Concern of dehydration. We will give IV fluid. COVID-19. Clinically, there is no shortness of breath or cough. Continue droplet isolation and stool precautions. MD NICOLE Hernandez/SERINA /[id number]
[2019-07-12] MEDS: ENOXAPARIN SOD INJ 40 MG/0.4 ML SYR SC SCH (17:00)
[2019-07-13 00:02] VITALS: BP 131/61
[2019-07-13 04:16] VITALS: BP 132/61
[2019-07-13 04:18] LABS: BASOPHILS % 0.2 % (0.0-1.0); EOSINOPHILS % 0.6 % (0.0-6.0); HEMATOCRIT 35.6 % (34.2-44.1); LYMPHOCYTES # (AUTO) 1.1 (1.0-3.2); LYMPHOCYTES % 21.4 % (18.0-39.1); MEAN CORPUSCULAR HEMOGLOBIN 29.3 pg (28-32); MEAN CORPUSCULAR HGB CONC 33.7 g/dL (31-35); MONOCYTES # (AUTO) 0.6 (0.2-0.8); MONOCYTES % 11.6 % (4.4-11.3); NEUTROPHILS # (AUTO) 3.5 (2.1-6.9); NEUTROPHILS % 65.4 % (38.7-80.0); PLATELET COUNT 311 x10e3/uL (140-360); RED BLOOD COUNT 4.09 x10e6/uL (3.6-5.1); RED CELL DISTRIBUTION WIDTH 13.2 % (11.7-14.4)
[2019-07-13 04:33] LABS: ANION GAP 13.1 mmol/L (8-16); BLOOD UREA NITROGEN 6 mg/dL (7-26); BUN/CREATININE RATIO 12 (6-25); CALCIUM 7.6 mg/dL (8.4-10.2); CARBON DIOXIDE 23 mmol/L (22-29); CHLORIDE 101 mmol/L (98-107); EST GLOMERULAR FILTRATION RATE > 60 ML/MIN (60-); GLUCOSE 81 mg/dL (74-118); POTASSIUM 3.1 mmol/L (3.5-5.1); SODIUM 134 mmol/L (136-145)
[2019-07-13] MEDS ORDERED: POTASSIUM CHLORIDE 20 MEQ TAB CR PO ONE ×2 (07:00→09:00)
--- NOTE | 2019-07-13 07:15 | NUR ---
received bedside report. pt is resting in bed, no s/s of distress. call light within reach
[2019-07-13 08:07] VITALS: BP 129/65
[2019-07-13] MEDS: PANTOPRAZOLE SOD 40 MG TABEC PO SCH (08:08)
[2019-07-13 08:09] VITALS: BP 129/65
--- NOTE | 2019-07-13 09:38 | Progress Note ---
DATE: SUBJECTIVE: The patient is concerned about her , who is now in an intensive care unit. She had some diarrhea yesterday. She is not having any fevers. OBJECTIVE: VITAL SIGNS: Blood pressure is 129/65. She is saturating 95% on room air. HEENT: Shows no facial swelling or erythema. CARDIAC: Reveals regular rate and rhythm with normal S1 and S2. LUNGS: Auscultation of lungs shows decreased breath sounds at the bases. There is no wheezing. ABDOMEN: Soft, nontender. There is no rebound or guarding. EXTREMITIES: Show no leg edema or calf tenderness. LABORATORY DATA: CBC is within normal limits. Potassium is 3.1. The other electrolytes are within normal limits. IMPRESSION: 1. Viral pneumonia and coronavirus disease 2019 infection. 2. Diarrhea. 3. Hypokalemia. PLAN: 1. Continue current therapy. 2. Discussed discharge with Dr. Grimaldo and Dr. Stark. Donald Cleveland MD [facility]/SERINA /[id number]
--- NOTE | 2019-07-13 09:49 | Diagnostic Imaging Report ---
Examination: Single AP view of the chest. COMPARISON: 07/08/2019 INDICATION: Cough DISCUSSION: Unchanged patchy opacities in the left lower lung. No new consolidation, pleural effusion, or pneumothorax. Cardiomediastinal contour and pulmonary vasculature are within normal limits when accounting for AP technique. No acute osseous abnormalities. IMPRESSION: Stable patchy airspace disease in the left lower lobe compatible with pneumonia. Radiographic follow-up to resolution is suggested. Signed by: Dr. Iain Eastman M.D. on 07/13/2019 9:45 AM
[2019-07-13 10:25] VITALS: BP 129/65
[2019-07-13 11:41] VITALS: BP 127/68
--- NOTE | 2019-07-13 12:55 | Progress Note ---
DATE: SUBJECTIVE: Ms. Haines remains in the hospital. She says she is weak. She is still concerned about her . She had some diarrhea, overall feeling better. REVIEW OF SYSTEMS: There is no shortness of breath or cough. LABORATORY DATA: White count 5.28, hemoglobin 4.09. Sodium 134, potassium 3.1. PHYSICAL EXAMINATION: GENERAL: She is currently alert, oriented, does not seem to be in acute distress. VITAL SIGNS: Stable, currently afebrile. HEENT: She is not icteric. NECK: Supple. CHEST: Clear. HEART: S1 and S2. No S3, S4, or murmur. ABDOMEN: Soft. Bowel sounds present. No tenderness. EXTREMITIES: No edema. SKIN: No rash. IMPRESSION: 1. Coronavirus disease 2019 pneumonia, present on admission. 2. Diarrhea due to antibiotic. 3. Anxiety. We will discuss with Internal Medicine. MD NICOLE Hernandez/SERINA /[id number]
[2019-07-13] MEDS ORDERED: VALTREX500 MG PO (13:15)
--- NOTE | 2019-07-13 14:30 | NUR ---
patient was taken to ICU by ELMERO so she could see her who is a patient in ICU. The pt's brother will be at the front entrance between 3 and 3:30 pm to pick the pt up and take her home
--- NOTE | 2019-07-13 23:36 | Discharge Summary ---
PRIMARY CARE DOCTOR: Dr. Moe Oakley. FINAL DIAGNOSIS: COVID-19 pneumonia. SECONDARY DIAGNOSIS: None. CONSULTANTS: 1. Dr. Stark, Infectious Disease. 2. Dr. Cleveland, Pulmonary. PROCEDURES/STUDIES PERFORMED: None. HISTORY: Per [facility]. HOSPITAL COURSE: The patient was admitted. Her mild hypoxia was monitored. The patient has some diarrhea, likely due to antibiotics. Antibiotic was discontinued. The patient was given a dose of Questran. Finally, now she is better. The patient also got some IV fluid. The patient received Lovenox for chemical DVT prophylaxis. Part of it is her is also in the hospital with the same, however, apparently on ventilator and critically ill. The patient was seen and examined today. CONDITION ON DISCHARGE: Improved. DISCHARGE MEDICATIONS: Please see medication reconciliation form. It took 32 minutes total to discharge this patient. [facility] MD STEFANO Lima/SERINA /[id number] cc: Moe Oakley
== END 2019-07-13 14:30 | disposition home or self-care (01) | DRG 177 ==
LOC: ER 10:28 → ERHOLD 10:49 → IMCU 18:25
PROVIDERS: ADMIT Internal Medicine; ATTEND Internal Medicine
DX: U07.1 COVID-19 (principal); J12.89 Other viral pneumonia; K52.1 Toxic gastroenteritis and colitis; E87.6 Hypokalemia; K57.90 Diverticulosis of intestine, part unspecified, without perforation or abscess without bleeding; R09.02 Hypoxemia; E86.0 Dehydration; Z88.0 Allergy status to penicillin; T36.95XA Adverse effect of unspecified systemic antibiotic, initial encounter; F41.9 Anxiety disorder, unspecified
CPT/HCPCS: 36415; 71045; 80048; 80053; 80061; 80076; 82150; 82550; 82553; 82728; 83518; 83605; 83690; 83735; 83880; 84484; 85025; 87040; 87070; 87400; 87633; 87635; 93005; 96361; 99284; J0456; J0696; J1170; J1650; J2405; J3475; J7030; J7121

== ENCOUNTER 2023-11-29 20:29 | Emergency (ER) | payer BC, MEDICARE ==
[~2023-11-29] VITALS: Ht 154.9 cm; Wt 52.2 kg
[2023-11-29 20:34] VITALS: PULSE 80; RESP 16; TEMP 98.9
[2023-11-29] MEDS: ACETAMINOPHEN 325 MG TAB PO STA (20:42)
[2023-11-29 23:35] VITALS: BP 158/81; O2SAT 99
== END 2023-11-29 23:33 | disposition home or self-care (01) ==
LOC: ER 20:35
DX: S00.83XA Contusion of other part of head, initial encounter (principal); W20.8XXA Other cause of strike by thrown, projected or falling object, initial encounter; Y92.89 Other specified places as the place of occurrence of the external cause; Z87.19 Personal history of other diseases of the digestive system
CPT/HCPCS: 70450; 99284

== ENCOUNTER 2024-06-30 15:47 | Emergency (ER) | payer MEDICARE ==
[~2024-06-30] VITALS: Ht 154.9 cm; Wt 52.2 kg
[2024-06-30 15:54] VITALS: PULSE 79; RESP 18; TEMP 98.4
[2024-06-30] MEDS: DIPHTH,PERTUSS(ACELL),TET VAC 0.5 ML SYRINGE IM ONE (17:23)
[2024-06-30 17:32] VITALS: BP 132/82; PULSE 77; RESP 16; TEMP 98.3; O2SAT 99
== END 2024-06-30 17:35 | disposition home or self-care (01) ==
LOC: ER 16:06
DX: S00.83XA Contusion of other part of head, initial encounter (principal); W22.09XA Striking against other stationary object, initial encounter; Y92.89 Other specified places as the place of occurrence of the external cause; K21.9 Gastro-esophageal reflux disease without esophagitis; Z87.19 Personal history of other diseases of the digestive system
CPT/HCPCS: 99283